=== PATIENT | male | born 1970 | race Caucasian/White ===

== ENCOUNTER 2024-01-26 22:18 | Inpatient (IN) ==
[2024-01-26] MEDS: Ondansetron 4 mg VIAL 2 MG/ML 2 ml VIAL IV ONE (23:03)
[2024-01-26 23:22] LABS: Activated Partial Thrombo Time 31.1 seconds (26.0-38.0); INR 1.32 (0.83-1.13)
[2024-01-26 23:43] LABS: Albumin 4.1 g/dL (3.2-5.2); Albumin/Globulin Ratio 1.5 (1-3); C Reactive Protein 261.11 mg/L (<8.01); Calcium 10.2 mg/dL (8.6-10.3); Creatinine, Serum 1.15 mg/dL (0.67-1.17); Globulin 2.8 g/dL (2-4); Potassium 4.5 mmol/L (3.5-5.0); Total Protein 6.9 g/dL (6.4-8.9); eGFR CKD-EPI 75.6 (>60)
[2024-01-26] MEDS: Lactated Ringers 1000 ml BAG 1,000 ML IV ONE (23:43)
[2024-01-26 23:54] LABS: Hematocrit 47.7 % (38-53); Hemoglobin 15.8 g/dL (13.2-16.3); Mean Corpuscular Hemoglobin 29.2 pg (27-33); Mean Corpuscular Hgb Conc 33.1 g/dL (31-36); Red Blood Count 5.41 10^6/uL (4.06-5.63); Red Cell Distribution Width 15.3 % (12-17); White Blood Count 17.1 10^3/uL (3.6-10.2)
[2024-01-27] MEDS: Iohexol 350 (CONTRAST) 500 ML MDV IV ONE (01:27)
[2024-01-27 01:31] LABS: High Sensitivity Troponin 1 Hr 7 pg/mL (<20)
[2024-01-27] MEDS: Morphine 4 MG/ML VIAL (1 ml) IV ONE (01:46)
[2024-01-27] MEDS: Metoclopramide 5 MG/ML VIAL (10 mg) IV SLOW PU ONE (01:46)
[2024-01-27 01:52] LABS: ABS Basophils 0.1 10^3/uL (0.0-0.1); ABS Lymphocytes 1.4 10^3/uL (1.0-4.8); ABS Monocytes 0.4 10^3/uL (0.0-1.1); ABS Neutrophils 15.9 10^3/uL (1.5-7.6); ABS Nucleated RBC 0.01 10^3/ul; Eosinophil % 0.1 %; Lymphocyte % 7.9 %; Mean Platelet Volume 9.6 fL (7.5-11.2); Platelet Count 234 10^3/uL (150-450)
[2024-01-27] MEDS: Piperacillin/Tazobac 3.375 BAG 3.375 GM/100 ML BAG IV ONE ×2 (01:58→03:28)
[2024-01-27] MEDS: Lactated Ringers 1000 ml BAG 1,000 ML IV ONE (03:28)
[2024-01-27] MEDS: HYDROmorphone 1 MG/1 ML SYRINGE IV SLOW PU PRN (03:37)
[2024-01-27] MEDS: Lactated Ringers 1000 ml BAG 1,000 ML IV SCH (04:54)
[2024-01-27 06:18] LABS: ABS Basophils 0.1 10^3/uL (0.0-0.1); ABS Lymphocytes 1.5 10^3/uL (1.0-4.8); ABS Monocytes 0.3 10^3/uL (0.0-1.1); ABS Neutrophils 11.5 10^3/uL (1.5-7.6); Eosinophil % 0.2 %; Hematocrit 39.7 % (38-53); Hemoglobin 13.7 g/dL (13.2-16.3); Lymphocyte % 10.9 %; Mean Corpuscular Hemoglobin 30.3 pg (27-33); Mean Corpuscular Hgb Conc 34.4 g/dL (31-36); Mean Corpuscular Volume 88.1 fL (80-97); Mean Platelet Volume 8.2 fL (7.5-11.2); Platelet Count 200 10^3/uL (150-450); Red Blood Count 4.51 10^6/uL (4.06-5.63); Red Cell Distribution Width 15.4 % (12-17); White Blood Count 13.4 10^3/uL (3.6-10.2)
[2024-01-27 06:53] LABS: Calcium 8.7 mg/dL (8.6-10.3); Creatinine, Serum 1.2 mg/dL (0.67-1.17); Potassium 4.1 mmol/L (3.5-5.0); eGFR CKD-EPI 71.9 (>60)
[2024-01-27 10:11] LABS: Urine Appearance Clear; Urine Bacteria Absent /HPF (Absent); Urine Bilirubin Negative (Negative); Urine Blood Trace (Negative); Urine Color Yellow; Urine Glucose Negative (Negative); Urine Ketones 1+ (Negative); Urine Nitrite Negative (Negative); Urine Protein 1+ (>=30 mg/dL) (Negative); Urine Red Blood Cell 2+(6-10/hpf) /HPF (0-Trace); Urine Specific Gravity >1.050 (1.002-1.030); Urine Squamous Epithelial Cell Present /HPF (Absent); Urine Urobilinogen Negative (Negative); Urine White Blood Cell Trace(0-5/hpf) /HPF (0-Trace)
[2024-01-27] MEDS: Piperacillin/Tazobac 3.375 BAG 3.375 GM/100 ML BAG IV SCH (11:48)
[2024-01-28 06:54] LABS: ABS Eosinophils 0.1 10^3/uL (0.0-0.5); ABS Lymphocytes 0.8 10^3/uL (1.0-4.8); ABS Monocytes 0.4 10^3/uL (0.0-1.1); ABS Neutrophils 8.4 10^3/uL (1.5-7.6); Eosinophil % 0.6 %; Hematocrit 34.7 % (38-53); Lymphocyte % 8.3 %; Mean Corpuscular Hemoglobin 30.4 pg (27-33); Mean Corpuscular Hgb Conc 34.7 g/dL (31-36); Mean Corpuscular Volume 87.7 fL (80-97); Mean Platelet Volume 8.4 fL (7.5-11.2); Platelet Count 191 10^3/uL (150-450); Red Blood Count 3.95 10^6/uL (4.06-5.63); Red Cell Distribution Width 15.1 % (12-17); White Blood Count 9.7 10^3/uL (3.6-10.2)
[2024-01-28 07:31] LABS: Calcium 7.9 mg/dL (8.6-10.3); Creatinine, Serum 1.08 mg/dL (0.67-1.17); Potassium 4.3 mmol/L (3.5-5.0); eGFR CKD-EPI 81.5 (>60)
[2024-01-28] MEDS: CMCS: Atomoxetine 40 mg CAP (NF) PO SCH (08:25)
[2024-01-29 05:57] LABS: ABS Eosinophils 0.2 10^3/uL (0.0-0.5); ABS Lymphocytes 0.9 10^3/uL (1.0-4.8); ABS Monocytes 0.5 10^3/uL (0.0-1.1); ABS Neutrophils 5.3 10^3/uL (1.5-7.6); Eosinophil % 3.2 %; Hematocrit 35.4 % (38-53); Hemoglobin 11.8 g/dL (13.2-16.3); Lymphocyte % 12.5 %; Mean Corpuscular Hgb Conc 33.4 g/dL (31-36); Mean Corpuscular Volume 89.8 fL (80-97); Mean Platelet Volume 9.1 fL (7.5-11.2); Platelet Count 175 10^3/uL (150-450); Red Blood Count 3.94 10^6/uL (4.06-5.63); Red Cell Distribution Width 15.6 % (12-17); White Blood Count 6.9 10^3/uL (3.6-10.2)
[2024-01-29] MEDS: Enoxaparin 40 MG/0.4 ML SYR SUBCUT SCH (13:11)
[2024-01-29] MEDS: Ondansetron 4 mg VIAL 2 MG/ML 2 ml VIAL IV PRN (13:34)
[2024-01-30] MEDS ORDERED: Lorazepam PYXIS KEY PRN (00:06)
[2024-01-30] MEDS: Famotidine IV 10 MG/ML 2 ml VIAL (20 mg) IV SLOW PU SCH (00:23)
[2024-01-30] MEDS: LORazepam 2 mg VIAL 1 ml IV PUSH ONE (00:23)
[2024-01-30] MEDS: NS 0.9% 1000 ml BAG 1,000 ML IV SCH (08:59)
[2024-01-30 09:49] LABS: ABS Basophils 0.1 10^3/uL (0.0-0.1); ABS Eosinophils 0.3 10^3/uL (0.0-0.5); ABS Lymphocytes 1.3 10^3/uL (1.0-4.8); ABS Neutrophils 5.3 10^3/uL (1.5-7.6); Hematocrit 38.8 % (38-53); Hemoglobin 13.1 g/dL (13.2-16.3); Lymphocyte % 15.9 %; Mean Corpuscular Hemoglobin 29.5 pg (27-33); Mean Corpuscular Hgb Conc 33.8 g/dL (31-36); Mean Corpuscular Volume 87.3 fL (80-97); Mean Platelet Volume 7.3 fL (7.5-11.2); Platelet Count 285 10^3/uL (150-450); Red Blood Count 4.45 10^6/uL (4.06-5.63); Red Cell Distribution Width 14.9 % (12-17); White Blood Count 7.9 10^3/uL (3.6-10.2)
[2024-01-30 10:28] LABS: Calcium 7.7 mg/dL (8.6-10.3); Creatinine, Serum 0.87 mg/dL (0.67-1.17); Potassium 3.8 mmol/L (3.5-5.0); eGFR CKD-EPI 102.5 (>60)
[2024-01-31] MEDS ORDERED: HYDROmorphone 1 MG/1 ML SYRINGE IV SLOW PU PRN (11:34)
[2024-01-31] MEDS: COVID VAC 23-24(12+)(Moderna) SYR 0.5 ML IM ONE (12:39)
[2024-01-31] MEDS: Iohexol 300 (CONTRAST) 10 ML SDV IV ONE (14:18)
[2024-02-01 07:27] LABS: ABS Eosinophils 0.2 10^3/uL (0.0-0.5); ABS Lymphocytes 0.8 10^3/uL (1.0-4.8); ABS Monocytes 0.7 10^3/uL (0.0-1.1); ABS Neutrophils 6.1 10^3/uL (1.5-7.6); Eosinophil % 2.2 %; Hemoglobin 11.7 g/dL (13.2-16.3); Lymphocyte % 10.8 %; Mean Corpuscular Hemoglobin 29.8 pg (27-33); Mean Corpuscular Hgb Conc 34.4 g/dL (31-36); Mean Corpuscular Volume 86.7 fL (80-97); Mean Platelet Volume 7.1 fL (7.5-11.2); Platelet Count 300 10^3/uL (150-450); Red Blood Count 3.92 10^6/uL (4.06-5.63); Red Cell Distribution Width 15.4 % (12-17); White Blood Count 7.8 10^3/uL (3.6-10.2)
[2024-02-01 08:14] LABS: Albumin 2.8 g/dL (3.2-5.2); Albumin/Globulin Ratio 1.3 (1-3); C Reactive Protein 151.83 mg/L (<8.01); Calcium 7.7 mg/dL (8.6-10.3); Creatinine, Serum 1.02 mg/dL (0.67-1.17); Globulin 2.2 g/dL (2-4); Potassium 3.4 mmol/L (3.5-5.0); Total Bilirubin 0.6 mg/dL (0.2-1.0); eGFR CKD-EPI 87.3 (>60)
[2024-02-01 11:52] LABS: Magnesium 1.9 mg/dL (1.9-2.7)
[2024-02-01] MEDS: Potassium Chlor 20 meq TAB.ER PO ONE (11:56)
[2024-02-02 12:33] LABS: ABS Basophils 0.1 10^3/uL (0.0-0.1); ABS Eosinophils 0.2 10^3/uL (0.0-0.5); ABS Lymphocytes 1.2 10^3/uL (1.0-4.8); ABS Monocytes 0.7 10^3/uL (0.0-1.1); ABS Neutrophils 5.8 10^3/uL (1.5-7.6); ABS Nucleated RBC 0.01 10^3/ul; Eosinophil % 2.2 %; Hematocrit 37.7 % (38-53); Hemoglobin 12.5 g/dL (13.2-16.3); Mean Corpuscular Hemoglobin 28.9 pg (27-33); Mean Corpuscular Hgb Conc 33.2 g/dL (31-36); Nucleated Red Blood Cells % 0.1 %/100WBC (0.0-0.8); Platelet Count 373 10^3/uL (150-450); Red Blood Count 4.33 10^6/uL (4.06-5.63); Red Cell Distribution Width 15.5 % (12-17); White Blood Count 7.9 10^3/uL (3.6-10.2)
[2024-02-02] MEDS ORDERED: metroNIDAZOLE IV 500 MG/100ML 500 MG/100 ML BAG IVPB SCH (13:00)
[2024-02-02 13:14] LABS: Urine Appearance Clear; Urine Bilirubin Negative (Negative); Urine Blood Negative (Negative); Urine Color Light-Yellow; Urine Glucose Negative (Negative); Urine Ketones Trace (Negative); Urine Nitrite Negative (Negative); Urine Protein Negative (Negative); Urine Specific Gravity 1.015 (1.002-1.030); Urine Urobilinogen Negative (Negative)
[2024-02-02 17:02] LABS: Anion Gap 9 mmol/L (2-16); Blood Urea Nitrogen 5 mg/dL (6-24); CO2 Carbon Dioxide 28 mmol/L (22-32); Calcium 8.5 mg/dL (8.6-10.3); Chloride 101 mmol/L (101-111); Creatinine, Serum 1.06 mg/dL (0.67-1.17); Glucose 140 mg/dL (70-100); Magnesium 2.1 mg/dL (1.9-2.7); Sodium 138 mmol/L (135-145); eGFR CKD-EPI 83.4 (>60)
[2024-02-02] MEDS: cefTRIAXone 2 gm/50 mL D5W 2 GM/50 ML BAG IV SCH (19:46)
[2024-02-02] MEDS: metroNIDAZOLE IV 500 MG/100ML 500 MG/100 ML BAG IVPB SCH (20:45)
[2024-02-03 14:04] VITALS: BP 151/108
== END 2024-02-03 14:35 | disposition home or self-care (01) | DRG 244 ==
LOC: ED 22:18 → EDHOLD 22:18 → SSU 01-27 08:22
PROVIDERS: ADMIT Surgery; ATTEND Surgery